=== PATIENT | male | born 2000 | race Caucasian/White ===

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

== ENCOUNTER → 2020-01-12 | Outpatient (CLI) | payer OTHER ==
[~2020-01-12] MED LIST: CONRAY-43 43% 50ML VIAL (Q9960) As Ordered ONE; KETO10TAB PO; NAPR250T4 PO; PROHANCE 279.3MG/ML 5ML VIAL (A9576) As Ordered ONE
--- NOTE | 2020-01-12 09:54 | REP ---
MR ARTHROGRAM OF THE RIGHT SHOULDER: TECHNIQUE: Axial T2 fat sat, coronal oblique T1, T2 fat sat, post arthrogram axial T1 fat sat, proton density, coronal oblique T1 fat sat, T2 sat, sagittal oblique T2 fat sat, ABER T1 fat sat. The rotator cuff tendons demonstrate normal signal with no evidence of a tear. The acromioclavicular joint does not demonstrate significant hypertrophic change. There is nonspecific marrow edema in the distal end of the clavicle. Acromioclavicular ligament appears intact. Acromion is type 2. Biceps tendon is within the bicipital groove with no tenosynovitis. There is no Hill-Sachs deformity. The deltoid muscle demonstrates no abnormal signal. On the post arthrogram images, there is linear signal extending partially through the base of the superior labrum, anteriorly. This involves the biceps labral complex and appears to represent a partial labral tear in this region. Other portions of the labrum appear intact. There is no paralabral cyst. There is no other area of abnormal bone marrow signal. There is a normal amount of joint fluid. IMPRESSION: No rotator cuff tendon tear. There does appear to be a partial tear of the anterior aspect of the superior labrum also involving the biceps labral complex. Nonspecific marrow edema in the distal end of the clavicle. Electronically Signed by Jonel Chaudhary MD 01/12/2020 05:38 P
--- NOTE | 2020-01-12 17:44 | REP ---
Procedure: Right shoulder arthrogram The procedure was performed under the direct supervision of Dr. Chaudhary. History: Right shoulder pain The benefits and risks including but not limited to pain, infection, bleeding and anaphylaxis were explained to the patient and informed consent was obtained. Technique: The right glenohumeral joint space was localized using fluoroscopic guidance. The skin was prepped and draped in a sterile fashion. 1% lidocaine was used as a local anesthetic. Using fluoroscopic guidance a 22 gauge spinal needle was inserted and advanced into the joint. 0.5 ml of Conray 43 was injected to verify placement. 11 ml of a solution containing 20 ml of sterile saline and 0.15 ml of ProHance was injected into the joint. The needle was removed and the patient was taken to MRI for postprocedural imaging. The the patient tolerated the procedure well and there were no immediate complications. Less than 6 seconds of fluoro time was utilized for this procedure. Electronically Signed by FATUMA Haney 01/12/2020 03:59 P Electronically Signed by Jonel Chaudhary MD 01/12/2020 05:36 P
== END ==
LOC: M RADPRO 06:11
PROVIDERS: ATTEND Physician Assistant Surgical
DX: M25.511 Pain in right shoulder (principal); M75.91 Shoulder lesion, unspecified, right shoulder
CPT/HCPCS: 23350; 73223; 77002; A9576; Q9960

== ENCOUNTER → 2020-03-12 | Outpatient (CLI) | payer OTHER ==
[~2020-03-12] MED LIST changes: -CONRAY-43 43% 50ML VIAL (Q9960) As Ordered ONE; -PROHANCE 279.3MG/ML 5ML VIAL (A9576) As Ordered ONE
== END ==
LOC: M LABSMTC 12:59
PROVIDERS: ATTEND Anesthesiology
DX: Z01.818 Encounter for other preprocedural examination (principal); Z11.59 Encounter for screening for other viral diseases
CPT/HCPCS: C9803; U0002

== ENCOUNTER 2020-03-14 07:13 | Day surgery (SDC) | payer OTHER ==
[~2020-03-14] VITALS: Ht 180.3 cm; Wt 83.5 kg
[~2020-03-14 07:13] MED LIST changes: +LR 1,000 ML IV SCH
[2020-03-14] MEDS ORDERED: ROPIvacaine 0.5% 30ML INJECTION (J2795 PER 1MG) ONE (07:14)
[2020-03-14] MEDS ORDERED: dexameTHASONE 10MG/1ML VIAL PRES.FREE (J1100 PER 1MG) ONE (07:14)
[2020-03-14] MEDS ORDERED: LIDOCAINE 1% MDV 20ML VIAL ONE (07:14)
[2020-03-14] MEDS ORDERED: propofoL 200 MG/20 ML VIAL As Ordered ONE ×2 (08:25→08:27)
[2020-03-14] MEDS ORDERED: ROCURONIUM BROMIDE 50 MG/5 ML VIAL As Ordered ONE (08:26)
[2020-03-14] MEDS ORDERED: LIDOCAINE 2% 100MG/5ML SDV (FOR ANES.) As Ordered ONE (08:26)
[2020-03-14] MEDS ORDERED: MIDAZOLAM INJ 2MG/2ML VIAL (J2250 PER 1MG) As Ordered ONE ×2 (08:26→09:09)
[2020-03-14] MEDS ORDERED: dexameTHASONE 4 MG/ML 1ML VIAL (J1100 PER 1MG) As Ordered ONE (08:27)
[2020-03-14] MEDS ORDERED: ONDANSETRON 4MG/2ML VIAL As Ordered ONE (08:27)
[2020-03-14] MEDS ORDERED: fentaNYL 100 MCG/2 ML INJECTION (J3010) As Ordered ONE ×2 (08:27→09:09)
[2020-03-14] MEDS ORDERED: ceFAZolin SOD 2 GM in IV 1 EA IV ONE (09:15)
[2020-03-14] MEDS: fentaNYL 100 MCG/2 ML INJECTION (J3010) IV SCH ×2 (09:20→09:47)
[2020-03-14] MEDS: MIDAZOLAM INJ 2MG/2ML VIAL (J2250 PER 1MG) IV SCH ×2 (09:20→09:24)
[2020-03-14] MEDS ORDERED: EPINEPHrine 1MG/ML INJ 30ML MD-VIAL As Ordered ONE (09:33)
[2020-03-14] MEDS ORDERED: SUGAMMADEX SODIUM 500 MG/5 ML VIAL (BRIDION) As Ordered ONE (10:27)
[2020-03-14] MEDS ORDERED: fentaNYL 100 MCG/2 ML INJECTION (J3010) IV PRN (11:30)
[2020-03-14] MEDS ORDERED: oxyCODONE 5MG TAB PO PRN (11:30)
[2020-03-14] MEDS ORDERED: ONDANSETRON 4MG/2ML VIAL IV PRN (11:30)
[2020-03-14] MEDS ORDERED: LR 1,000 ML IV SCH ×2 (11:30)
[2020-03-14] MEDS ORDERED: MORPHINE 2 MG/ML 1ML VIAL (J2270) IV PRN (11:45)
[2020-03-14] MEDS ORDERED: PERCOCET 5MG/325MG TAB PO PRN ×2 (11:45)
[2020-03-14 12:05] VITALS: BP 134/72
--- NOTE | 2020-03-16 19:55 | RO ---
DATE OF PROCEDURE: 03/14/2020 PREPROCEDURE DIAGNOSES: 1. Right shoulder SLAP tear. 2. Right shoulder acromioclavicular (AC) joint disruption. POSTPROCEDURE DIAGNOSES: 1. Right shoulder acromioclavicular joint disruption PROCEDURE: 1. Right shoulder examination under anesthesia. 2. Right shoulder diagnostic arthroscopy of the glenohumeral joint. 3. Right shoulder subacromial bursectomy. 4. Right shoulder arthroscopic distal clavicle excision. SURGEON: Dr. Ben Rojas [employer] SPECIALIST: Berthaterrance Calhoun ANESTHESIA: General endotracheal tube anesthesia with a right interscalene nerve block. COMPLICATIONS: None. FINDINGS: Exam under anesthesia revealed a stable shoulder. There was, however, a palpable click when I circumducted and cross-arm adducted his shoulder, and I did also reproduce his pain in the preoperative holding area. But there was no gross instability in any plane noted. DESCRIPTION OF PROCEDURE: Antibiotics were given intravenously preoperatively and successful right interscalene nerve block and then a general laryngeal mask anesthetic was established. Then he was placed in the semi-beach chair position with a Spider shoulder moore utilized. Exam under anesthesia was performed with the findings as noted above. After appropriate time-out, routine diagnostic arthroscopy was performed through a posterior portal. We had excellent visualization of the glenohumeral joint. There was no labral tear throughout. There was some slight fraying of the superior labrum insertion of the biceps but by applying traction with my Veress needle on the biceps insertion, there was clearly no instability of this insertion. The labrum along the anterior and inferior and posterior aspect of the glenoid was intact. Subscapularis was intact. Rotator cuff was intact. Articular cartilage surfaces were intact. At this point then, finding no other treatable pathology intraarticularly, I placed the scope in the subacromial space, had excellent visualization. There was no obvious rotator cuff tear noted. Then, I carefully debrided using ablator wand from a lateral portal medially, eventually entering into the AC joint and exposing the distal end of the clavicle. And it was quite noteworthy that there was quite a bit of fibrous tissue and irregularity of the distal end of the clavicle, and it was actually abnormally hypermobile, which would indicate and would be consistent with having symptoms generating from this area. I then placed the Veress needle directly anteriorly as a working portal directly into the AC joint through the previously placed anterior working portal. And then using ablator wand, I debrided into the AC joint and cleared out a lot of the fibrous tissue. Hemostasis was secured in a similar fashion and then once I had excellent visualization, I performed a formal distal clavicle excision using Acromionizer mohsen. Photographs were taken to document this before and after. At this point, finding no other arthroscopically treatable pathology, copiously irrigated out the subacromial space, the wounds were closed with interrupted nylon sutures, covered by Adaptic, dry sterile bulky dressing and then the patient was placed in a sling, then awakened from general endotracheal tube anesthesia after having tolerated the procedure well and transferred to the recovery room in stable condition. There were no intraoperative complications. Ms. Bertha Calhoun was critical to the success of this difficult surgery by helping with appropriate manipulation of the arm, the instruments, helped to close the wound, helped to prepare the patient amongst many other tasks to allow me to perform the operation smoothly, efficiently, and safely. RONA
== END 2020-03-14 13:04 | disposition home or self-care (01) ==
LOC: M SDC 07:13
PROVIDERS: ATTEND Orthopaedic Surgery
DX: S43.491A Other sprain of right shoulder joint, initial encounter (principal); M19.011 Primary osteoarthritis, right shoulder; W19.XXXA Unspecified fall, initial encounter; Y92.84 Military training ground as the place of occurrence of the external cause; Y99.1 Military activity; Y93.02 Activity, running; Z88.2 Allergy status to sulfonamides; Z91.81 History of falling
CPT/HCPCS: 29823; 29824; 64415; J0690; J1100; J2250; J2405; J2795; J3010